=== PATIENT | male | born 1960 | race Caucasian/White ===

== ENCOUNTER → 2018-03-29 | Outpatient (CLI) | payer OTHER | END | disposition home or self-care (01) | LOC: CFH 07:53 | PROVIDERS: ATTEND Psychiatry & Neurology Neurology | DX: I65.23 Occlusion and stenosis of bilateral carotid arteries (principal); G43.009 Migraine without aura, not intractable, without status migrainosus; F03.90 Unspecified dementia, unspecified severity, without behavioral disturbance, psychotic disturbance, mood disturbance, and anxiety | CPT/HCPCS: 70551; 93306; 93880 ==

== ENCOUNTER 2020-07-02 19:48 | Emergency (ER) | payer OTHER ==
[~2020-07-02] VITALS: Ht 172.7 cm; Wt 85.5 kg
--- NOTE | 2020-07-02 20:19 | NUR ---
PT ATTEMPTING UA AT THIS TIME. ABLE TO AMBULATE WITH STEADY GAIT TO BATHROOM.
--- NOTE | 2020-07-02 20:21 | NUR ---
PT DENIES ANY MEDICAL C/O AT THIS TIME. REPORTS SEVERE RLQ ABDOMINAL PAIN WITH RADIATION TO FLANK EARLIER TODAY, PAIN ABATED. ERP IN ROOM TO EVAL PT, PT UPDATED ON POC.
[2020-07-02 20:37] LABS: EOSINOPHILS % (AUTO) 1 % (1-7); RED BLOOD COUNT 4.64 x10^6/uL (4.38-5.82)
--- NOTE | 2020-07-02 20:40 | NUR ---
PT BACK TO ROOM, UPDATED ON POC, CALL LIGHT WITHIN REACH, MONITORING IN PLACE.
[2020-07-02 20:47] LABS: ALANINE AMINOTRANSFERASE 36 U/L (12-78); ALBUMIN 4.1 g/dL (3.4-5.0); ANION GAP 7 mmol/L (5-15); CALCIUM 9.3 mg/dL (8.5-10.1); CHLORIDE 113 mmol/L (98-107); CREATININE 1.27 mg/dL (0.7-1.3)
[2020-07-02 20:50] LABS: ALKALINE PHOSPHATASE 78 U/L (45-117); BILIRUBIN,TOTAL 0.4 mg/dL (0.2-1.0)
[2020-07-02 20:58] LABS: BASOPHILS % (AUTO) 1 % (0-1); LYMPHOCYTES % (AUTO) 12 % (22-44); MEAN CORPUSCULAR HEMOGLOBIN 33.5 pg (27.5-34.5); MEAN CORPUSCULAR HGB CONC 34.2 g/dL (33.2-36.2); MEAN PLATELET VOLUME 10.2 fL (7.4-10.4); MONOCYTES % (AUTO) 7 % (2-9); NEUTROPHILS % (AUTO) 79 % (42-75); PLATELET COUNT 238 x10^3/uL (130-400); RED CELL DISTRIBUTION WIDTH 12.9 % (9.4-14.8)
[2020-07-02 21:09] LABS: MICROSCOPIC INDICATED
[2020-07-02 21:21] LABS: MD NO
[2020-07-02 21:46] VITALS: BP 138/64
== END 2020-07-02 21:53 | disposition home or self-care (01) ==
LOC: ED 21:36
DX: N20.2 Calculus of kidney with calculus of ureter (principal); R31.9 Hematuria, unspecified; N28.9 Disorder of kidney and ureter, unspecified
CPT/HCPCS: 36415; 74176; 80053; 81001; 83690; 85025; 87086; 99284